=== PATIENT | female | born 1945 | race Caucasian/White ===

== ENCOUNTER 2019-05-14 01:30 | Emergency (ER) | payer OTHER ==
[~2019-05-14] VITALS: Ht 172.7 cm; Wt 61.2 kg
[2019-05-14] MEDS ORDERED: Ropinirole HCl0.5 MG (02:33)
[2019-05-14] MEDS ORDERED: DONE10 (02:33)
[2019-05-14] MEDS ORDERED: Flonase 0.05% N16 GM (02:33)
[2019-05-14] MEDS ORDERED: FLUO10 (02:33)
[2019-05-14 02:41] LABS: Source, Urine Clean Catch
[2019-05-14 02:43] LABS: Appearance, Urine Cloudy (Clear); Bilirubin, Urine Neg (Neg); Blood, Urine 5+ (Neg); Color, Urine Amber (P-Yellow); Glucose Qualitative, Urine Neg (Neg); Ketones, Urine Neg (Neg); Leukocyte Esterase, Urine 3+ (Neg); Nitrite, Urine Pos (Neg); Protein, Urine 3+ (Neg); Specific Gravity, Urine 1.015 (1.003-1.022); Urobilinogen, Urine NORM (Normal)
[2019-05-14 02:57] LABS: Bacteria Many /hpf; Red Blood Cells, Urine TNTC /hpf (0-2); Squamous Epithelial Cells Not Seen /hpf (Few); White Blood Cells, Urine 25-50 /hpf (0-5)
[2019-05-14] MEDS ORDERED: CEPH500 PO (03:18)
[2019-05-14] MEDS ORDERED: Pyridium100 MG PO (03:18)
== END 2019-05-14 03:38 | disposition home or self-care (01) ==
LOC: ER 01:30
PROVIDERS: Emergency Medicine
DX: N30.91 Cystitis, unspecified with hematuria (principal); G30.9 Alzheimer's disease, unspecified; F02.80 Dementia in other diseases classified elsewhere, unspecified severity, without behavioral disturbance, psychotic disturbance, mood disturbance, and anxiety
CPT/HCPCS: 81001; 87077; 87086; 87186; 99283

== ENCOUNTER → 2019-08-12 | Outpatient (CLI) | payer OTHER ==
[~2019-08-12] MED LIST: CEPH500 PO; DONE10; FLUO10; Flonase 0.05% N16 GM; Pyridium100 MG PO; Ropinirole HCl0.5 MG
== END | disposition home or self-care (01) ==
LOC: LAB 07:00 → LAB SHORT 07:00
DX: K30 Functional dyspepsia (principal); R11.0 Nausea
CPT/HCPCS: 87015; 87045; 87046; 87205; 87899

== ENCOUNTER → 2019-12-15 | Outpatient (CLI) | payer OTHER ==
[2019-12-16 14:27] LABS: Stool Occult Bld Immuno 1 Negative (NEGATIVE)
== END | disposition home or self-care (01) ==
LOC: LAB 12:46 → LAB SHORT 12:46
PROVIDERS: Nurse Practitioner Family
DX: Z12.11 Encounter for screening for malignant neoplasm of colon (principal)
CPT/HCPCS: G0328

== ENCOUNTER 2020-06-07 01:55 | Emergency (ER) | payer OTHER ==
[~2020-06-07] VITALS: Ht 172.7 cm; Wt 63.5 kg
[2020-06-07 02:21] LABS: Source, Urine Clean Catch
[2020-06-07 02:25] LABS: Appearance, Urine Cloudy (Clear); Bilirubin, Urine Neg (Neg); Blood, Urine 5+ (Neg); Color, Urine Yellow (P-Yellow); Glucose Qualitative, Urine Neg (Neg); Ketones, Urine Neg (Neg); Leukocyte Esterase, Urine 3+ (Neg); Nitrite, Urine Neg (Neg); Protein, Urine 3+ (Neg); Specific Gravity, Urine 1.005 (1.003-1.022); Urobilinogen, Urine NORM (Normal)
[2020-06-07 02:27] LABS: White Blood Cells, Urine TNTC /hpf (0-5)
[2020-06-07 02:28] LABS: Bacteria Many /hpf; Squamous Epithelial Cells Few /hpf (Few)
[2020-06-07] MEDS ORDERED: CEPH500 PO (02:40)
== END 2020-06-07 02:44 | disposition home or self-care (01) ==
LOC: ER 01:55
PROVIDERS: Emergency Medicine
DX: N39.0 Urinary tract infection, site not specified (principal); G30.9 Alzheimer's disease, unspecified; F02.80 Dementia in other diseases classified elsewhere, unspecified severity, without behavioral disturbance, psychotic disturbance, mood disturbance, and anxiety; Z79.899 Other long term (current) drug therapy
CPT/HCPCS: 81001; 87077; 87086; 87147; 87186; 99283; A9270-GY

== ENCOUNTER → 2020-06-21 | Outpatient (CLI) | payer OTHER ==
[2020-06-22 11:15] LABS: Candida species (DNA Probe) Negative (NEGATIVE); G. vaginalis (DNA Probe) Negative (NEGATIVE); T. vaginalis (DNA Probe) Negative (NEGATIVE)
== END | disposition home or self-care (01) ==
LOC: LAB SHORT 19:18 → LAB 19:18
PROVIDERS: Nurse Practitioner Family
DX: B37.3 Candidiasis of vulva and vagina (principal)
CPT/HCPCS: 87480; 87510; 87660

== ENCOUNTER 2021-05-15 15:38 | Emergency (ER) | payer OTHER | END 2021-05-15 16:19 | disposition left against medical advice (07) | LOC: ER 15:38 | DX: Z53.21 Procedure and treatment not carried out due to patient leaving prior to being seen by health care provider (principal) ==

== ENCOUNTER → 2022-09-26 | Outpatient (CLI) | payer OTHER ==
[2022-09-26 14:01] LABS: Candida species (DNA Probe) Positive (NEGATIVE); G. vaginalis (DNA Probe) Positive (NEGATIVE); T. vaginalis (DNA Probe) Negative (NEGATIVE)
== END | disposition home or self-care (01) ==
LOC: LAB SHORT 08:45
PROVIDERS: Nurse Practitioner
DX: B37.31 Acute candidiasis of vulva and vagina (principal); R35.0 Frequency of micturition
CPT/HCPCS: 87077; 87086; 87186; 87480; 87510; 87660